=== PATIENT | female | born 1980 | race Caucasian/White ===

== ENCOUNTER 2024-04-24 10:38 | Emergency (ER) | payer OTHER ==
[2024-04-24] MEDS ORDERED: SODIUM CHLORIDE 0.9% 1,000 ML BAG ONE (11:30)
[2024-04-24] MEDS ORDERED: cefTRIAXone IN SWFI 1,000 MG/10 ML SYRINGE IVP ONE (15:23)
--- NOTE | 2024-05-27 11:23 | XR ---
Patient Yecenia Charles ID [id number] Order # EXAMINATION TYPE: XR chest 2V DATE OF EXAM: 04/24/2024 COMPARISON: No comparison available on downtime PACS. INDICATION: Acute mental status changes TECHNIQUE: Frontal and lateral views of the chest are obtained. FINDINGS: The heart size is normal. The pulmonary vasculature is normal. Some mild perihilar infiltrates are present. Correlate for acute bronchitis or atelectasis. Early pne umonia can be considered. Follow-up as clinically indicated. IMPRESSION: 1. Mild perihilar infiltrates. Correlate for bronchitis or early pneumonia.
== END 2024-04-24 15:55 | disposition home or self-care (01) ==
LOC: EC 10:38
DX: J18.9 Pneumonia, unspecified organism (principal)
CPT/HCPCS: 71046; 93005; 99284

== ENCOUNTER 2024-05-06 21:08 | Inpatient (IN) | payer OTHER ==
--- NOTE | 2024-05-06 21:33 | ED ---
Chest Pain HPI - General Stated Complaint: chest pain Time Seen by Provider: 05/06/24 21:24 Source: RN notes reviewed, old records reviewed Mode of arrival: EMS Limitations: no limitations - History of Present Illness Initial Comments: This is a 43-year-old female to the ER for evaluation today. Patient presents today for evaluation of pain. Patient has history of cardiomyopathy hypertrophic cardiomyopathy with arrhythmia. Patient presented with persistent chest pain here in the emergency department patient does not feel well MD Complaint: chest pain -: days(s) Onset: during rest, during exertion Pain Location: substernal, left chest Pain Radiation: LUE Severity: moderate Severity scale (1-10): 4 Quality: tightness, aching, heaviness Consistency: constant Improves With: nothing Worsens With: nothing Other Symptoms: palpitations Treatments Prior to Arrival: none - Related Data Home Medications Medication Instructions Recorded Confirmed Atomoxetine HCl [Strattera] 18 mg PO DAILY 05/07/24 05/07/24 Budesonide/Formoterol Fumarate 2 puff INHALATION RT-BID 05/07/24 05/07/24 [Symbicort 80-4.5 Mcg Inhaler] DULoxetine HCL [Cymbalta] 60 mg PO DAILY 05/07/24 05/07/24 Fluticasone Nasal [place] [Flonase 1 spray EA NOSTRIL DAILY 05/07/24 05/07/24 Nasal [place]] Lumateperone Tosylate [Caplyta] 10.5 mg PO DAILY 05/07/24 05/07/24 Nicotine 7Mg/24Hr Patch [Habitrol] 1 patch TRANSDERM DAILY 05/07/24 05/07/24 Verapamil HCl [Verapamil Sr] 120 mg PO DAILY 05/07/24 05/07/24 Previous Rx's Medication Instructions Recorded Albuterol Nebulized [Ventolin 2.5 mg INHALATION RT-QID PRN #20 05/08/24 Nebulized] each Atorvastatin [Lipitor] 80 mg PO HS #30 tab 05/08/24 Furosemide [Lasix] 20 mg PO DAILY #30 tab 05/08/24 Nicotine Polacrilex [Nicotine Gum] 4 mg BC QID #30 pieceofgum 05/08/24 Pantoprazole [Protonix] 40 mg PO AC-BRKFST #30 tab 05/08/24 Allergies Allergy/AdvReac Type Severity Reaction Status Date / Time Penicillins Allergy Swelling Verified 05/07/24 09:05 Review of Systems ROS Statement: Those systems with pertinent positive or pertinent negative responses have been documented in the HPI. ROS Other: All systems not noted in ROS Statement are negative. EKG Findings - EKG Comments: EKG Findings:: EKG is Sinus 83 RI 160 QRS 110 QTc 445 - EKG Results: EKG: interpreted by WANG Past Medical History - Past Family History Mother Additional Family Medical History / Comment(s): MS Father Family Medical History: Congestive Heart Failure (CHF), Hyperlipidemia, Hypertension General Exam General appearance: alert, in no apparent distress Head exam: Present: atraumatic, normocephalic, normal inspection Eye exam: Present: normal appearance, PERRL, EOMI. Absent: scleral icterus, conjunctival injection, periorbital swelling ENT exam: Present: normal exam, mucous membranes moist Neck exam: Present: normal inspection. Absent: tenderness, meningismus, lymphadenopathy Respiratory exam: Present: normal lung sounds bilaterally. Absent: respiratory distress, wheezes, rales, rhonchi, stridor Cardiovascular Exam: Present: regular rate, normal rhythm, normal heart sounds. Absent: systolic murmur, diastolic murmur, rubs, gallop, clicks GI/Abdominal exam: Present: soft, normal bowel sounds. Absent: distended, tenderness, guarding, rebound, rigid Extremities exam: Present: normal inspection, full ROM, normal capillary refill. Absent: tenderness, pedal edema, joint swelling, calf tenderness Back exam: Present: normal inspection Neurological exam: Present: alert, oriented X3, CN II-XII intact Psychiatric exam: Present: normal affect, normal mood Skin exam: Present: warm, dry, intact, normal color. Absent: rash Course Vital Signs 05/06/24 05/06/24 05/06/24 21:55 21:59 23:40 Temperature 97.9 F Pulse Rate 78 92 76 Respiratory 16 16 18 Rate Blood Pressure 97/68 115/72 121/63 O2 Sat by Pulse 94 L 94 L 95 Oximetry 05/07/24 05/07/24 05/07/24 00:13 04:37 06:04 Temperature Pulse Rate 92 95 84 Respiratory 18 18 18 Rate Blood Pressure 110/72 131/94 129/57 O2 Sat by Pulse 95 96 Oximetry 05/07/24 05/07/24 15:00 18:23 Temperature Pulse Rate 75 78 Respiratory 18 18 Rate Blood Pressure 106/73 117/75 O2 Sat by Pulse 98 98 Oximetry - Reevaluation(s) Reevaluation #1: 05/06/24 22:22 Medical records reviewed Reevaluation #2: 05/06/24 22:22 No chest pain here in the ER Reevaluation #3: 05/06/24 22:22 Informed of results questions answered Reevaluation #4: Was pt. sent in by a medical professional or institution ([facility], [employer], urgent care, hospital, or shelter...) When possible be specific @ -no Did you speak to anyone other than the patient for history (EMS, parent, family, police, friend...)? What history was obtained from this source @ -no Did you review nursing and triage notes (agree or disagree)? Why? @ -agree Are old charts reviewed (outside hosp., previous admission, EMS record, old EKG, old radiological studies, urgent care reports/EKG's, shelter records)? Report findings @ -yes Differential Diagnosis (chest pain, altered mental status, abdominal pain women, abdominal pain men, vaginal bleeding, weakness, fever, dyspnea, syncope, headache, dizziness, GI bleed, back pain, seizure, CVA, palpatations, mental health, musculoskeletal)? @ -prior EKG interpreted by me (3pts min.). @ -yes X-rays interpreted by me (1pt min.). @ -yes negative for acute disease CT interpreted by me (1pt min.). @ -no U/S interpreted by me (1pt. min.). @ -no What testing was considered but not performed or refused? (CT, X-rays, U/S, labs)? Why? @ -none What meds were considered but not given or refused? Why? @ -none Did you discuss the management of the patient with other professionals (professionals i.e. [facility]vas, [employer], lab, RT, psych nurse, social media job titles, boilermaker fitter, teacher, staff antisubmarine officer, case checker)? Give summary @ -no Was smoking cessation discussed for >3mins.? @ -no Was critical care preformed (if so, how long)? @ -yes31 Were there social determinants of health that impacted care today? How? (Homelessness, low income, unemployed, alcoholism, drug addiction, transportation, low edu. Level, literacy, decrease access to med. care, mcc, rehab)? @ -none Was there de-escalation of care discussed even if they declined (Discuss DNR or withdrawal of care, Hospice)? DNR status @ -no What co-morbidities impacted this encounter? (DM, HTN, Smoking, COPD, CAD, Cancer, CVA, ARF, Chemo, Hep., AIDS, mental health diagnosis, sleep apnea, morbid obesity)? @ -none Was patient admitted / discharged? Hospital course, mention meds given and route, prescriptions, significant lab abnormalities, going to OR and other pertinent info. @ - 43 female to the ER for evaluation patient with a chest pain mildly elevated troponin and significantly elevated troponin but does have severe CHF patient will be admitted for cardiac evaluation and observation Admitted with chest pain Undiagnosed new problem with uncertain prognosis? @ -no Drug Therapy requiring intensive monitoring for toxicity (Heparin, Nitro, Insulin, Cardizem)? @ -no Were any procedures done? @ -no Diagnosis/symptom? @ -Chest pain and elevated troponin Acute, or Chronic, or Acute on Chronic? @ -Acute Uncomplicated (without systemic symptoms) or Complicated (systemic symptoms)? @ -Complicated Side effects of treatment? @ -no Exacerbation, Progression, or Severe Exacerbation? @ -exacerbation Poses a threat to life or bodily function? How? (Chest pain, [place], [place], pneumonia, PE, COPD, DKA, ARF, appy, cholecystitis, CVA, Diverticulitis, Homicidal, Suicidal, threat to staff... and all critical care pts) @ -yes Reevaluation #5: Differential Chest Pain: Stable Angina, Unstable Angina, STEMI, NSTEMI Aortic Dissection, Pneumothorax, Musculoskeletal, Esophageal Spasm GERD, Cholecystitis, Pancreatitis, Zoster, this is not meant to be an all-inclusive list. - Consultations Consultation #1: With [facility] who agrees to admit this patient Consultation #2: Spoke with cardiology who did see patient's EKG Chest Pain MDM - MDM 43 female to the ER for evaluation patient with a chest pain mildly elevated troponin and significantly elevated troponin but does have severe CHF patient w ill be admitted for cardiac evaluation and observation Critical Care Time Critical Care Time: Yes Total Critical Care Time: 31 Disposition Clinical Impression: Acute non-ST elevation myocardial infarction (NSTEMI), CHF (congestive heart failure), HOCM (hypertrophic obstructive cardiomyopathy) Disposition: ADMITTED IP TO THIS HOSP Condition: Fair Is patient prescribed a controlled substance at d/c from ED?: No Time of Disposition: 23:35
[2024-05-06 21:47] LABS: Basophils % (A) 0 %; Eosinophils # (A) 0.3 k/uL (0-0.7); Eosinophils % (A) 3 %; HCT 35.5 % (34.0-46.0); HGB 12.2 gm/dL (11.4-16.0); Lymphocytes % (A) 20 %; MCH 30.4 pg (25.0-35.0); MCHC 34.4 g/dL (31.0-37.0); MCV 88.4 fL (80.0-100.0); Mean Platelet Volume 7.9; Monocytes # (A) 0.4 k/uL (0-1.0); Monocytes % (A) 4 %; Neutrophils % (A) 72 %; Platelet Count 244 k/uL (150-450); RBC 4.02 m/uL (3.80-5.40); RDW 14.3 % (11.5-15.5); WBC 9.8 k/uL (3.8-10.6)
[2024-05-06 21:56] LABS: INR 0.9 (<1.2); Partial Thromboplastin Time 24.5 sec (22.0-30.0)
[2024-05-06 22:00] LABS: ALT 17 U/L (4-34); AST 23 U/L (14-36); African American GFR (CKD) >90 (>60 ml/min/1.73 sqM); Albumin 3.6 g/dL (3.5-5.0); Alkaline Phosphatase 57 U/L (38-126); Anion Gap 4 mmol/L; Blood Urea Nitrogen 20 mg/dL (7-17); Calcium 9.1 mg/dL (8.4-10.2); Carbon Dioxide 20 mmol/L (22-30); Chloride 109 mmol/L (98-107); Glucose 95 mg/dL (74-99); Lipase 117 U/L (23-300); Magnesium 2.1 mg/dL (1.6-2.3); Non-African American GFR(CKD) >90 (>60 ml/min/1.73 sqM); Sodium 133 mmol/L (137-145); Total Bilirubin 0.4 mg/dL (0.2-1.3)
--- NOTE | 2024-05-06 22:02 | XR ---
EXAMINATION TYPE: XR chest 2V DATE OF EXAM: 05/06/2024 COMPARISON: None INDICATION: Chest pain TECHNIQUE: Frontal and lateral views of the chest are obtained. FINDINGS: The heart size is large. The pulmonary vasculature is dominant. Mild increased lung markings are at the lingula. The atelectasis or pneumonia. Atypical pneumonia cou ld be considered.. IMPRESSION: 1. Prominent heart and pulmonary vascular markings. Correlate for volume overload. 2. Atelectasis versus pneumonia within the lingula. Atypical pulmonary edema should be considered. Fo llow-up can be performed.
[2024-05-06 22:08] LABS: NT-Pro-B-Type Natriuretic Pept 2280 pg/mL
[2024-05-06] MEDS: FUROSEMIDE 10 MG/ML 4 ML VIAL IV STA (23:46)
[2024-05-07] MEDS ORDERED: NITROGLYCERIN OINT 1 INCH/GM PACKET TOPICAL SCH
[2024-05-07] MEDS: FUROSEMIDE 20 MG TAB PO SCH (10:17)
[2024-05-07] MEDS: NICOTINE 7MG/24HR PATCH TRANSDERM SCH (10:18)
[2024-05-07] MEDS: VERAPAMIL SR 120 MG TABLET.ER PO SCH (10:18)
[2024-05-07 10:47] LABS: African American GFR (CKD) >90 (>60 ml/min/1.73 sqM); Anion Gap 5 mmol/L; Blood Urea Nitrogen 16 mg/dL (7-17); Calcium 8.8 mg/dL (8.4-10.2); Carbon Dioxide 25 mmol/L (22-30); Chloride 106 mmol/L (98-107); Glucose 82 mg/dL (74-99); Non-African American GFR(CKD) >90 (>60 ml/min/1.73 sqM); Potassium 4.3 mmol/L (3.5-5.1); Sodium 136 mmol/L (137-145)
[2024-05-07] MEDS: SYMBICORT 80-4.5 MCG INHALER INHALATION SCH (11:23)
[2024-05-07] MEDS: ATOMOXETINE HCL 18 MG PO SCH (11:58)
[2024-05-07] MEDS: LUMATEPERONE TOSYLATE PO SCH (11:59)
--- NOTE | 2024-05-07 13:21 | P.CRDCN ---
History of Present Illness Consult date: 05/07/24 Consult reason: congestive heart failure History of present illness: This is a 43-year-old female with past medical history of hypertrophic cardi omyopathy, methamphetamine use. We have been asked to evaluate the patient for chest pain. Patient states that she was at rehab at [place] and developed heaviness in her chest that she has not had before. She normally follows with a seasoning mixer in the [facility] and has been told that she had hypertrophic cardiomyopathy. She is not currently on any other medications except verapamil. She states her last use of methamphetamines was 18 days ago. She denies any history of coronary artery disease. Blood pressure 129/57, heart rate 84, pulse ox 96% on room air. Patient is status post 1 dose of IV Lasix 40 mg. EKG: Sinus rhythm with LVH Chest x-ray: Prominent heart and pulmonary vascular markings correlate for volume overload. Atelectasis versus pneumonia within the lingula. Atypical pulmonary edema should be considered. Laboratory studies: CBC unremarkable. Sodium 136, potassium 4.3, BUN 16 creatinine 0.72. Troponin negative x 3. proBNP 2280. Home cardiac medications: Verapamil 120 mg daily Review Of Systems: At the time of my exam: CONSTITUTIONAL: Denies fever or chills. Reports fatigue. HEENT: Denies blurred vision, vision changes, or eye pain. Denies hemoptysis CARDIOVASCULAR: Reports chest heaviness. Denies orthopnea. Denies PND. Denies palpitations RESPIRATORY: Denies shortness of breath. GASTROINTESTINAL: Denies abdominal pain. Denies nausea or vomiting. HEMATOLOGIC: Denies bleeding disorders. GENITOURINARY: Denies any blood in urine. SKIN: Denies puritis. Denies rash. Physical examination: Gen: This is a 43-year-old female in no acute distress VS: reviewed HEENT: Head is atraumatic, normocephalic. Pupils equal, round. Sclerae is anicteric. NECK: Supple. No JVD. LUNGS: Minimal rhonchi. No intercostal retractions. HEART: Regular rate and rhythm. 4/6 systolic ejection murmur. ABDOMEN: Soft No tenderness. EXTREMITIES: No pedal edema. No calf tenderness. NEUROLOGICAL: Patient is awake, alert and oriented x3. Assessment: Atypical chest pain with negative troponins Acute diastolic heart failure Hypertrophic cardiomyopathy Methamphetamine use, currently in rehab Plan: Resume patient's home cardiac medications Obtain records from patient's seasoning mixer in [place] patient on Lasix oral 20 mg daily Obtain 2-D echocardiogram and Doppler study to assess cardiac structure and function Further recommendations to follow based upon clinical course Thank you kindly for this consultation. Nurse practitioner note has been reviewed, I agree with documented findings and plan of care. Patient was seen and examined. Medications and Allergies Home Medications Medication Instructions Recorded Confirmed Type Atomoxetine HCl [Strattera] 18 mg PO DAILY 05/07/24 05/07/24 History Budesonide/Formoterol Fumarate 2 puff INHALATION RT-BID 05/07/24 05/07/24 History [Symbicort 80-4.5 Mcg Inhaler] DULoxetine HCL [Cymbalta] 60 mg PO DAILY 05/07/24 05/07/24 History Fluticasone Nasal [place] [Flonase 1 spray EA NOSTRIL DAILY 05/07/24 05/07/24 History Nasal [place]] Lumateperone Tosylate [Caplyta] 10.5 mg PO DAILY 05/07/24 05/07/24 History Nicotine 7Mg/24Hr Patch [Habitrol] 1 patch TRANSDERM DAILY 05/07/24 05/07/24 History Verapamil HCl [Verapamil Sr] 120 mg PO DAILY 05/07/24 05/07/24 History Allergies Allergy/AdvReac Type Severity Reaction Status Date / Time Penicillins Allergy Swelling Verified 05/07/24 09:05 Physical Exam Vitals: Vital Signs Temp Pulse Resp BP Pulse Ox 05/07/24 06:04 84 18 129/57 96 05/07/24 04:37 95 18 131/94 05/07/24 00:13 92 18 110/72 95 05/06/24 23:40 76 18 121/63 95 05/06/24 21:59 97.9 F 92 16 115/72 94 L 05/06/24 21:55 78 16 97/68 94 L Intake and Output 05/06/24 05/07/24 05/07/24 22:59 06:59 14:59 Other: Weight 83.461 kg 83.461 kg Results 05/06/24 21:40 05/07/24 06:44 Cardiac Enzymes 05/06/24 05/06/24 05/07/24 Range/Units 21:40 21:40 02:47 AST 23 (14-36) U/L Troponin I 0.016 0.016 (0.000-0.034) ng/mL 05/07/24 Range/Units 06:44 AST (14-36) U/L Troponin I <0.012 (0.000-0.034) ng/mL Coagulation 05/06/24 Range/Units 21:40 PT 10.0 (10.0-12.5) sec APTT 24.5 (22.0-30.0) sec CBC 05/06/24 Range/Units 21:40 WBC 9.8 (3.8-10.6) k/uL RBC 4.02 (3.80-5.40) m/uL Hgb 12.2 (11.4-16.0) gm/dL Hct 35.5 (34.0-46.0) % Plt Count 244 (150-450) k/uL Comprehensive Metabolic Panel 05/06/24 Range/Units 21:40 Sodium 133 L (137-145) mmol/L Potassium 4.0 (3.5-5.1) mmol/L Chloride 109 H (98-107) mmol/L Carbon Dioxide 20 L (22-30) mmol/L BUN 20 H (7-17) mg/dL Creatinine 0.77 (0.52-1.04) mg/dL Glucose 95 (74-99) mg/dL Calcium 9.1 (8.4-10.2) mg/dL AST 23 (14-36) U/L ALT 17 (4-34) U/L Alkaline Phosphatase 57 (38-126) U/L Total Protein 6.0 L (6.3-8.2) g/dL Albumin 3.6 (3.5-5.0) g/dL Current Medications Generic Name Dose Route Start Last Admin Trade Name Freq PRN Reason Stop Dose Admin Atorvastatin Calcium 80 mg 05/07/24 21:00 Atorvastatin 80 Mg Tab PO HS FELIPA Intake and Output 05/06/24 05/07/24 05/07/24 22:59 06:59 14:59 Other: Weight 83.461 kg 83.461 kg 05/06/24 21:40 05/06/24 21:40
[2024-05-07] MEDS ORDERED: ALBUTEROL NEBULIZED 2.5 MG/3 ML INHALATION PRN (15:36)
--- NOTE | 2024-05-07 15:37 | P.HPIM ---
History of Present Illness H&P Date: 05/07/24 This is a pleasant 43-year-old female with medical history of hypertrophic cardiomyopathy with arrhythmia follows with a director of pediatric rehabilitation out of [facility] as well as methamphetamine use and has been at [facility]. Patient was recently admitted to the [facility] from [place] for shortness of breath was treated with azithromycin and sent back to [place]. Patient states that she has been more active than usual today she started to develop substernal left-sided chest pain with associated shortness of breath denies any dizziness or lightheadedness. She states that she has not been coughing and is not having any fever at this time. She did require 2 L of oxygen on admission. Her chest x-ray reveals volume overload with atelectasis versus pneumonia which is likely residual from her prior diagnosis. BNP was 2280 sodium of 133. Patient was admitted for acute CHF and started on oral Lasix was given a dose of IV Lasix on admission. And a repeat echocardiogram has been ordered and currently pending at this time. Medical records are requested from patient's main director of pediatric rehabilitation up in [place]. REVIEW OF SYSTEMS: CONSTITUTIONAL: No fever, no malaise, no fatigue. HEENT: No recent visual problems or hearing problems. Denied any sore throat. CARDIOVASCULAR: No chest pain, orthopnea, PND, no palpitations, no syncope. PULMONARY: No shortness of breath, no cough, no hemoptysis. GASTROINTESTINAL: No diarrhea, no nausea, no vomiting, no abdominal pain. NEUROLOGICAL: No headaches, no weakness, no numbness. HEMATOLOGICAL: Denies any bleeding or petechiae. GENITOURINARY: Denies any burning micturition, frequency, or urgency. MUSCULOSKELETAL/RHEUMATOLOGICAL: Denies any joint pain, swelling, or any muscle pain. ENDOCRINE: Denies any polyuria or polydipsia. The rest of the 14-point review of systems is negative. PHYSICAL EXAMINATION: GENERAL: The patient is alert and oriented x3, not in any acute distress. Well developed, well nourished. HEENT: Pupils are round and equally reacting to light. EOMI. No scleral icterus. No conjunctival pallor. Normocephalic, atraumatic. No pharyngeal erythema. No thyromegaly. CARDIOVASCULAR: S1 and S2 present. No murmurs, rubs, or gallops. PULMONARY: Chest is clear to auscultation, no wheezing or crackles. ABDOMEN: Soft, nontender, nondistended, normoactive bowel sounds. No palpable or ganomegaly. MUSCULOSKELETAL: No joint swelling or deformity. EXTREMITIES: No cyanosis, clubbing, or pedal edema. NEUROLOGICAL: Gross neurological examination did not reveal any focal deficits. SKIN: No rashes. Assessment -Chest pain, atypical rule out acute coronary syndrome -Acute diastolic heart failure -Known hypertropic cardiomyopathy follows with a director of pediatric rehabilitation out of [facility] -Methamphetamine use currently at [facility] -Hyponatremia hypervolemic improved with IV lasix -COPD with no acute exacerbation. GI prophylaxis Plan Continue current cardiac medications Cardiology consultation Echocardiogram pending Records from [facility] Patient has been started on oral lasix. Continue symbicort add nebulized albuterol. The impression and plan of care has been dictated by Maria Elena Nails, Nurse Practitioner as directed. Dr. Patti MD I have performed a history and physical examination and medical decision making of this patient, discussed the same with the dictator, and agree with the dictators assessment and plan as written, documented as a scribe. Based on total visit time, I have performed more than 50% of this visit. Medications and Allergies Home Medications Medication Instructions Recorded Confirmed Type Atomoxetine HCl [Strattera] 18 mg PO DAILY 05/07/24 05/07/24 History Budesonide/Formoterol Fumarate 2 puff INHALATION RT-BID 05/07/24 05/07/24 History [Symbicort 80-4.5 Mcg Inhaler] DULoxetine HCL [Cymbalta] 60 mg PO DAILY 05/07/24 05/07/24 History Fluticasone Nasal [place] [Flonase 1 spray EA NOSTRIL DAILY 05/07/24 05/07/24 History Nasal [place]] Lumateperone Tosylate [Caplyta] 10.5 mg PO DAILY 05/07/24 05/07/24 History Nicotine 7Mg/24Hr Patch [Habitrol] 1 patch TRANSDERM DAILY 05/07/24 05/07/24 History Verapamil HCl [Verapamil Sr] 120 mg PO DAILY 05/07/24 05/07/24 History Allergies Allergy/AdvReac Type Severity Reaction Status Date / Time Penicillins Allergy Swelling Verified 05/07/24 09:05 Physical Exam Vitals: Vital Signs Temp Pulse Resp BP Pulse Ox 05/07/24 06:04 84 18 129/57 96 05/07/24 04:37 95 18 131/94 05/07/24 00:13 92 18 110/72 95 05/06/24 23:40 76 18 121/63 95 05/06/24 21:59 97.9 F 92 16 115/72 94 L 05/06/24 21:55 78 16 97/68 94 L Intake and Output 05/06/24 05/07/24 05/07/24 22:59 06:59 14:59 Other: Weight 83.461 kg 83.461 kg Results CBC & Chem 7: 05/06/24 21:40 05/07/24 06:44 Labs: Abnormal Lab Results - Last 24 Hours (Table) 05/06/24 Range/Units 21:40 Sodium 133 L (137-145) mmol/L Chloride 109 H (98-107) mmol/L Carbon Dioxide 20 L (22-30) mmol/L BUN 20 H (7-17) mg/dL Total Protein 6.0 L (6.3-8.2) g/dL Assessment and Plan Time with Patient: Less than 30
[2024-05-07] MEDS: ALBUTEROL NEBULIZED 2.5 MG/3 ML INHALATION SCH (16:11)
[2024-05-07] MEDS: CYCLOBENZAPRINE 10 MG TAB PO PRN (18:23)
[2024-05-08] MEDS ORDERED: ATORVASTATIN 80 MG TAB ONE (00:38)
[2024-05-08] MEDS: PANTOPRAZOLE 40 MG TABLET PO SCH (06:32)
[2024-05-08] MEDS: ATORVASTATIN 80 MG TAB PO SCH (07:30)
[2024-05-08] MEDS: DULoxetine HCL 60 MG CAPSULE.DR PO SCH (07:31)
[2024-05-08] MEDS: FLUTICASONE NASAL 50MCG/SPRAY 16GM BTL EA NOSTRIL SCH (11:39)
--- NOTE | 2024-05-08 13:16 | CA ---
Transthoracic Echo Report Name: Yecenia Charles Age: 43 Gender: F : 1980 Exam Date: 05/07/2024 14:00 Exam Location: [place] [facility] Ht (in): 63 Wt (lb): 184 Ordering Physician: Piero Phillip DO Attending/Referring Phys: [id number], Kenji Tank Car Loader Thania Kelley, AKHIL Procedure CPT: Indications: Heart failure Cardiac Hx: HOCM Technical Quality: Fair Contrast 1: Definity Total Dose (mL): 2 Contrast 2: Total Dose (mL): MEASUREMENTS (Male / Female) Normal Values 2D ECHO LV Diastolic Diameter PLAX 3.5 cm 4.2 - 5.9 / 3.9 - 5.3 cm LV Systolic Diameter PLAX 2.2 cm IVS Diastolic Thickness 2.3 cm 0.6 - 1.0 / 0.6 - 0.9 cm LVPW Diastolic Thickness 1.5 cm 0.6 - 1.0 / 0.6 - 0.9 cm LV Relative Wall Thickness 1.1 RV Internal Dim ED PLAX 2.2 cm LA Systolic Diameter LX 4.9 cm 3.0 - 4.0 / 2.7 - 3.8 cm LA Volume 125.2 cm??? 18 - 58 / 22 - 52 cm??? LA Volume Index 63.9 cm???/m??? 16 - 28 cm???/m??? M-MODE Aortic Root Diameter MM 2.6 cm LA Systolic Diameter MM 4.6 cm LA Ao Ratio MM 1.8 AV Cusp Separation MM 1.7 cm DOPPLER MV Area PHT 2.6 cm??? Mitral E Point Velocity 113.4 cm/s Mitral A Point Velocity 70.9 cm/s Mitral E to A Ratio 1.6 MV Deceleration Time 294.9 ms TR Peak Velocity 310.6 cm/s TR Peak Gradient 38.6 mmHg FINDINGS Left Ventricle Left ventricular ejection fraction is estimated at 70-75%. Severely increased septal wall thickness. Moderately increased posterior wall thickness. Small left ventricular cavity. Severe HOCM LVOTO 55 mmHg with valsalva maneuver. Right Ventricle Right ventricle not well visualized. Mild pulmonary hypertension. Right Atrium Mild right atrial dilatation. Left Atrium Severely increased left atrial diameter. Severely increased left atrial volume. Mildly increased left atrial area. Mitral Valve Structurally normal mitral valve. Severe mitral regurgitation. No mitral stenosis. Aortic Valve Trileaflet aortic valve. No aortic stenosis. No aortic regurgitation. Tricuspid Valve Structurally normal tricuspid valve. Mild tricuspid regurgitation. No tricuspid stenosis. Pulmonic Valve Structurally normal pulmonic valve. Mild pulmonic regurgitation. No pulmonic stenosis. Pericardium No pericardial or pleural effusion. Aorta Normal size aortic root and proximal ascending aorta. CONCLUSIONS Left ventricular ejection fraction 70% Severe increased septal thickness measuring 2.3 cm consistent with hypertrophic cardiomyopathy with LVOT gradient 55 mmHg with Valsalva RVSP 38 Moderate to severely dilated left atrium Severe mitral regurgitation with systolic anterior motion of the mitral leaflet Mild tricuspid regurgitation Previewed by: Dr. Tushar Magallanes DO (Electronically Signed) Final Date: 08 May 2024 13:15
--- NOTE | 2024-05-08 14:02 | P.PN ---
Subjective Progress Note Date: 05/08/24 Consult reason: congestive heart failure History of present illness: This is a 43-year-old female with past medical history of hypertrophic cardiomyopathy, methamphetamine use. We have been asked to evaluate the patient for chest pain. Patient states that she was at rehab at [place] and developed heaviness in her chest that she has not had before. She normally follows with a restaurant team member in the [facility] and has been told that she had hypertrophic cardiomyopathy. She is not currently on any other medications except verapamil. She states her last use of methamphetamines was 18 days ago. She denies any history of coronary artery disease. Blood pressure 129/57, heart rate 84, pulse ox 96% on room air. Patient is status post 1 dose of IV Lasix 40 mg. EKG: Sinus rhythm with LVH Chest x-ray: Prominent heart and pulmonary vascular markings correlate for volume overload. Atelectasis versus pneumonia within the lingula. Atypical pul monary edema should be considered. Laboratory studies: CBC unremarkable. Sodium 136, potassium 4.3, BUN 16 creatinine 0.72. Troponin negative x 3. proBNP 2280. Home cardiac medications: Verapamil 120 mg daily 05/08 Echocardiogram reveals EF of 70%. Severe increased septal thickness measuring 2.3 cm consistent with hypertrophic cardiomyopathy with LVOT gradient 55 mmHg with Valsalva. RVSP 38. Moderate to severely dilated left atrium. Severe mitral regurgitation and mild tricuspid regurgitation. Records from patient's restaurant team member have been reviewed and are similar except for it appears worsening of the mitral regurgitation. Vital signs have been stable. BMP unremarkable. Physical examination: Gen: This is a 43-year-old female in no acute distress VS: reviewed HEENT: Head is atraumatic, normocephalic. Pupils equal, round. Sclerae is anicteric. NECK: Supple. No JVD. LUNGS: Minimal rhonchi. No intercostal retractions. HEART: Regular rate and rhythm. 4/6 systolic ejection murmur. ABDOMEN: Soft No tenderness. EXTREMITIES: No pedal edema. No calf tenderness. NEUROLOGICAL: Patient is awake, alert and oriented x3. Assessment: Atypical chest pain with negative troponins Acute diastolic heart failure Hypertrophic cardiomyopathy Methamphetamine use, currently in rehab Plan: Continue patient's home cardiac medications Continue patient on Lasix oral 20 mg daily Patient is cleared for discharge from cardiology with recommendations to follow- up with her own restaurant team member regarding hypertrophic cardiomyopathy as well as severe mitral regurgitation. If patient is at rehab for an extended period, she may follow-up with [facility]ology Associates during that time if she chooses to do so. Nurse practitioner note has been reviewed, I agree with documented findings and plan of care. Patient was seen and examined. Objective - Vital Signs Vital signs: Vital Signs Temp 98.2 F 05/08/24 08:00 Pulse 77 05/08/24 08:00 Resp 14 05/08/24 08:00 BP 105/69 05/08/24 08:00 Pulse Ox 94 L 05/08/24 08:00 FiO2 Intake & Output 05/07/24 05/08/24 05/08/24 18:59 06:59 18:59 Weight 80.8 kg - Labs CBC & Chem 7: 05/06/24 21:40 05/07/24 06:44 Labs: Abnormal Lab Results - Last 24 Hours (Table) 05/07/24 Range/Units 06:44 Sodium 136 L (137-145) mmol/L
[2024-05-08] MEDS ORDERED: ACETAMINOPHEN TAB 325 MG TAB PO PRN (14:36)
[2024-05-08] MEDS: IBUPROFEN 400 MG TAB PO PRN (14:56)
[2024-05-08 15:52] VITALS: BMI 31.5
[2024-05-08 21:03] LABS: Appearance,Urine Cloudy (Clear); Bacteria,Urine Occasional /hpf; Bilirubin,Urine Negative (Negative); Blood,Urine Trace (Negative); Color,Urine Colorless; Glucose,Urine (UA) Negative (Negative); Ketones,Urine Negative (Negative); Leukocyte Esterase,Urine Trace (Negative); Mucus,Urine Rare /hpf; Nitrite,Urine Negative (Negative); Protein,Urine Negative (Negative); RBC,Urine 1 /hpf (0-5); Specific Gravity,Urine 1.004 (1.001-1.035); Squamous Epithelial Cell,Urine 13 /hpf (0-4); Urobilinogen,Urine <2.0 mg/dL (<2.0); WBC,Urine 2 /hpf (0-5)
--- NOTE | 2024-05-09 11:04 | US ---
EXAMINATION TYPE: US kidneys/renal and bladder DATE OF EXAM: 05/09/2024 COMPARISON: NONE CLINICAL INDICATION: Female, 43 years old with history of Flank pain, hematuria; flank pain, more on the right. Pt states she has bacteruria EXAM MEASUREMENTS: Right Kidney: 10.5 x 5.0 x 4.0 cm Left Kidney: 10.6 x 5.4 x 5.8 cm Right Kidney: No hydronephrosis or masses seen Left Kidney: No hydronephrosis or masses seen Bladder: wnl Bilateral Jets seen: Yes There is no evidence for hydronephrosis at this point in time. No nephrolithiasis is seen. No tonya s are identified. The urinary bladder is anechoic. Bilateral ureteral jets are seen. IMPRESSION: No evidence for obstructive uropathy. No renal calculi.
[2024-05-09 11:42] LABS: HCT 43.9 % (34.0-46.0); MCH 29.8 pg (25.0-35.0); MCHC 34.1 g/dL (31.0-37.0); MCV 87.3 fL (80.0-100.0); Mean Platelet Volume 7.4; Platelet Count 320 k/uL (150-450); RBC 5.03 m/uL (3.80-5.40); RDW 14.1 % (11.5-15.5); WBC 7.5 k/uL (3.8-10.6)
[2024-05-09 13:03] VITALS: RESP 14
--- NOTE | 2024-05-09 14:04 | P.PN ---
Subjective Progress Note Date: 05/08/24 This is a pleasant 43-year-old female with medical history of hypertrophic cardiomyopathy with arrhythmia follows with a marketing copywriter out of [facility] as well as methamphetamine use and has been at [facility]. Patient was recently admitted to the [facility] from [place] for shortness of breath was treated with azithromycin and sent back to [place]. Patient states that she has been more active than usual today she started to develop substernal left-sided chest pain with associated shortness of breath denies any dizziness or lightheadedness. She st ates that she has not been coughing and is not having any fever at this time. She did require 2 L of oxygen on admission. Her chest x-ray reveals volume overload with atelectasis versus pneumonia which is likely residual from her prior diagnosis. BNP was 2280 sodium of 133. Patient was admitted for acute CHF and started on oral Lasix was given a dose of IV Lasix on admission. And a repeat echocardiogram has been ordered and currently pending at this time. Medical records are requested from patient's main marketing copywriter up in [place]. 05/08/2024 Patients chest pain has gone. Her main complaint now is shortness of breath. She is continued on oral lasix. Her echocardiogram reveals EF of 70% hypertrophic cardiomyopathy with LVOT gradient, severe MR with systolic anterior motion of the mitral leaflet, mild TR. Echo was reviewed by cardiology and patient has been cleared for DC home. REVIEW OF SYSTEMS: CONSTITUTIONAL: No fever, no malaise, no fatigue. HEENT: No recent visual problems or hearing problems. Denied any sore throat. CARDIOVASCULAR: No chest pain, orthopnea, PND, no palpitations, no syncope. PULMONARY: No shortness of breath, no cough, no hemoptysis. GASTROINTESTINAL: No diarrhea, no nausea, no vomiting, no abdominal pain. NEUROLOGICAL: No headaches, no weakness, no numbness. PHYSICAL EXAMINATION: GENERAL: The patient is alert and oriented x3, not in any acute distress. Well developed, well nourished. HEENT: Pupils are round and equally reacting to light. EOMI. No scleral icterus. No conjunctival pallor. Normocephalic, atraumatic. No pharyngeal erythema. No thyromegaly. CARDIOVASCULAR: S1 and S2 present. No murmurs, rubs, or gallops. PULMONARY: Chest is clear to auscultation, no wheezing or crackles. ABDOMEN: Soft, nontender, nondistended, normoactive bowel sounds. No palpable organomegaly. MUSCULOSKELETAL: No joint swelling or deformity. EXTREMITIES: No cyanosis, clubbing, or pedal edema. NEUROLOGICAL: Gross neurological examination did not reveal any focal deficits. SKIN: No rashes. Assessment -Chest pain, atypical rule out acute coronary syndrome -Acute diastolic heart failure -Known hypertropic cardiomyopathy follows with a marketing copywriter out of [facility] -Methamphetamine use currently at [facility] [address] -Hyponatremia hypervolemic improved with IV lasix -COPD with no acute exacerbation. GI prophylaxis Plan Continue current cardiac medications Cardiology consultation Echocardiogram Reviewed and cleared by cardiology Records from [facility] echo unchanged. Patient has been started on oral lasix. Continue symbicort add nebulized albuterol. The impression and plan of care has been dictated by Maria Elena Nails Nurse Practitioner as directed. Dr. Patti MD I have performed a history and physical examination and medical decision making of this patient, discussed the same with the dictator, and agree with the dictators assessment and plan as written, documented as a scribe. Based on total visit time, I have performed more than 50% of this visit. Objective - Vital Signs Vital signs: Vital Signs Temp 97.9 F 05/09/24 08:00 Pulse 62 05/09/24 08:00 Resp 16 05/09/24 08:00 BP 112/57 05/09/24 08:00 Pulse Ox 96 05/09/24 08:00 FiO2 Intake & Output 05/08/24 05/09/24 05/09/24 18:59 06:59 18:59 Intake Total 360 240 240 Balance 360 240 240 Weight 80.8 kg 81.2 kg Intake: Oral 360 240 240 Other: # Voids 2 1 - Labs CBC & Chem 7: 05/09/24 10:49 05/07/24 06:44 Labs: Abnormal Lab Results - Last 24 Hours (Table) 05/08/24 Range/Units 20:45 Urine Appearance Cloudy H (Clear) Urine Blood Trace H (Negative) Ur Leukocyte Esterase Trace H (Negative) Ur Squamous Epith Cells 13 H (0-4) /hpf Urine Bacteria Occasional H (None) /hpf Urine Mucus Rare H (None) /hpf Assessment and Plan Time with Patient: Less than 30
[2024-05-09] MEDS: IOPAMIDOL CONTRAST (ORAL USE) VIAL PO PRN (14:26)
--- NOTE | 2024-05-09 15:09 | P.PN ---
Subjective Progress Note Date: 05/09/24 Consult reason: congestive heart failure History of present illness: This is a 43-year-old female with past medical history of hypertrophic cardiomyopathy, methamphetamine use. We have been asked to evaluate the patient for chest pain. Patient states that she was at rehab at [place] and developed heaviness in her chest that she has not had before. She normally follows with a sleeping room cleaner in the [facility] and has been told that she had hypertrophic cardiomyopathy. She is not currently on any other medications except verapamil. She states her last use of methamphetamines was 18 days ago. She denies any history of coronary artery disease. Blood pressure 129/57, heart rate 84, pulse ox 96% on room air. Patient is status post 1 dose of IV Lasix 40 mg. EKG: Sinus rhythm with LVH Chest x-ray: Prominent heart and pulmonary vascular markings correlate for volume overload. Atelectasis versus pneumonia within the lingula. Atypical pul monary edema should be considered. Laboratory studies: CBC unremarkable. Sodium 136, potassium 4.3, BUN 16 creatinine 0.72. Troponin negative x 3. proBNP 2280. Home cardiac medications: Verapamil 120 mg daily 05/08 Echocardiogram reveals EF of 70%. Severe increased septal thickness measuring 2.3 cm consistent with hypertrophic cardiomyopathy with LVOT gradient 55 mmHg with Valsalva. RVSP 38. Moderate to severely dilated left atrium. Severe mitral regurgitation and mild tricuspid regurgitation. Records from patient's sleeping room cleaner have been reviewed and are similar except for it appears worsening of the mitral regurgitation. Vital signs have been stable. BMP unremarkable. 05/09 Patient is seen today and follow-up. She was cleared for discharge yesterday. Patient apparently developed dysuria and flank pain for which discharge was held. Blood pressure 116/70, heart rate 72, pulse ox 97% on room air. Physical examination: Gen: This is a 43-year-old female in no acute distress VS: reviewed HEENT: Head is atraumatic, normocephalic. Pupils equal, round. Sclerae is anicteric. NECK: Supple. No JVD. LUNGS: Minimal rhonchi. No intercostal retractions. HEART: Regular rate and rhythm. 4/6 systolic ejection murmur. ABDOMEN: Soft No tenderness. EXTREMITIES: No pedal edema. No calf tenderness. NEUROLOGICAL: Patient is awake, alert and oriented x3. Assessment: Atypical chest pain with negative troponins Acute diastolic heart failure Hypertrophic cardiomyopathy Methamphetamine use, currently in rehab Plan: Continue patient's home cardiac medications Continue patient on Lasix oral 20 mg daily Patient is cleared for discharge from cardiology with recommendations to follow- up with her own sleeping room cleaner regarding hypertrophic cardiomyopathy as well as severe mitral regurgitation. Nurse practitioner note has been reviewed, I agree with documented findings and plan of care. Patient was seen and examined. Objective - Vital Signs Vital signs: Vital Signs Temp 98 F 05/08/24 20:00 Pulse 72 05/09/24 04:00 Resp 16 05/09/24 04:00 BP 116/70 05/09/24 04:00 Pulse Ox 97 05/09/24 08:00 FiO2 Intake & Output 05/08/24 05/09/24 05/09/24 18:59 06:59 18:59 Intake Total 360 240 240 Balance 360 240 240 Weight 80.8 kg 81.2 kg Intake: Oral 360 240 240 Other: # Voids 2 1 - Labs CBC & Chem 7: 05/09/24 10:49 05/07/24 06:44 Labs: Abnormal Lab Results - Last 24 Hours (Table) 05/08/24 Range/Units 20:45 Urine Appearance Cloudy H (Clear) Urine Blood Trace H (Negative) Ur Leukocyte Esterase Trace H (Negative) Ur Squamous Epith Cells 13 H (0-4) /hpf Urine Bacteria Occasional H (None) /hpf Urine Mucus Rare H (None) /hpf
--- NOTE | 2024-05-09 15:24 | CT ---
EXAMINATION TYPE: CT abdomen w con DATE OF EXAM: 05/09/2024 COMPARISON: None HISTORY: flank pain CT DLP: 852.4 mGycm Automated exposure control for dose reduction was used. TECHNIQUE: Helical acquisition of images was performed from the lung bases through the top of iliac crest to include entire abdomen. CONTRAST: Performed without Oral Contrast and with IV Contrast, patient injected with 100 mL of Isovue 300. Findings: There is a broad band of interstitial scarring in the left lung base. The gallbladder is normal without distention, wall thickening, pericholecystic fluid or gallstones. T here is no biliary ductal dilatation. There is no focal mass or organomegaly involving the liver, pancreas, spleen or adrenal glands. There is no solid renal mass or hydronephrosis and there is homogeneous contrast enhancement of the r enal parenchyma. The caliber the abdominal aorta is normal is no retroperitoneal adenopathy or hemorr lisa. The bowel loops are normal in caliber and there is no evidence of dilatation or obstruction. No infla mmatory changes are identified in the bowel wall or mesentery. There is no free intraperitoneal air or fluid. The osseous structures and soft tissues are intact. IMPRESSION: Mild interstitial scarring in the left lung base with no other significant abnormality seen.
[2024-05-09 16:09] VITALS: BP 106/68; PULSE 70; TEMP 98.1
--- NOTE | 2024-05-09 19:44 | P.DS ---
Providers Date of admission: 05/06/24 23:34 Attending physician: Marianne Allison Consults: 05/06/24 23:33 Consult Physician Routine Consulting Provider: Malcom Bean Consult Reason/Comments: chf Do you want consulting provider notified?: Yes Primary care physician: Stated None Hospital Course: Final Diagnosis -Chest pain, atypical rule out acute coronary syndrome -Acute diastolic heart failure -Valvular heart disease and worsening of miltral regurgitation and mild tricuspid regurgitation. -Known hypertropic cardiomyopathy follows with a city letter carrier out of [facility] -Methamphetamine use currently at [facility] -Hyponatremia hypervolemic improved with IV lasix -COPD with no acute exacerbation. Discharge Disposition Stable for discharge back to [place]. She has been sent on oral lasix, atorvastatin. Patient has requested nicorette gum which has been ordered. Patient to continue all other same home medications. Hospital Course This is a pleasant 43-year-old female with medical history of hypertrophic cardiomyopathy with arrhythmia follows with a city letter carrier out of [facility] as well as methamphetamine use and has been at [facility]. Patient was recently admitted to the [facility] from [place] for shortness of breath was treated with azithromycin and sent back to [place]. Patient states that she has been more active than usual today she started to develop substernal left-sided chest pain with associated shortness of breath denies any dizziness or lightheadedness. She states that she has not been coughing and is not having any fever at this time. She did require 2 L of oxygen on admission. Her chest x-ray reveals volume overload with atelectasis versus pneumonia which is likely residual from her prior diagnosis. BNP was 2280 sodium of 133. Patient was admitted for acute CHF and started on oral Lasix was given a dose of IV Lasix on admission. Echocardiogram reveals EF of 70%. Severe increased septal thickness measuring 2.3 cm consistent with hypertrophic cardiomyopathy with LVOT gradient 55 mmHg with Valsalva. RVSP 38. Moderate to severely dilated left atrium. Severe mitral regurgitation and mild tricuspid regurgitation. Records from patient's city letter carrier have been reviewed and are similar except for it appears worsening of the mitral regurgitation. Vital signs have been stable. BMP unremarkable. Patient has now report some right upper quadrant pain although not tender on exam and also right flank pain although again not tender on exam. Abdominal ultrasound shows no kidney stones, no hydronephrosis. Abdominal CT reveals no acute findings. Gallbladder is normal. Patient also had a normal D Dimer. She will be discharged back to [place] and advised to see her primary city letter carrier on discharge. Please see medication reconciliation for a list of current medications. Thank you for allowing us to participate in the care of this patient. The impression and plan of care has been dictated by Maria Elena Nails, Nurse Practitioner as directed. Dr. Patti MD I have performed a history and physical examination and medical decision making of this patient, discussed the same with the dictator, and agree with the dictators assessment and plan as written, documented as a scribe. Based on total visit time, I have performed more than 50% of this visit. Patient Condition at Discharge: Fair Plan - Discharge Summary Discharge Rx Participant: Yes New Discharge Prescriptions: New Furosemide [Lasix] 20 mg PO DAILY #30 tab Atorvastatin [Lipitor] 80 mg PO HS #30 tab Nicotine Polacrilex [Nicotine Gum] 4 mg BC QID #30 pieceofgum Pantoprazole [Protonix] 40 mg PO AC-BRKFST #30 tab Albuterol Nebulized [Ventolin Nebulized] 2.5 mg INHALATION RT-QID PRN #20 each PRN Reason: Shortness Of Breath Or Wheezing Continue Fluticasone Nasal Delta [Flonase Nasal Delta] 1 spray EA NOSTRIL DAILY Budesonide/Formoterol Fumarate [Symbicort 80-4.5 Mcg Inhaler] 2 puff INHALATION RT-BID Verapamil HCl [Verapamil Sr] 120 mg PO DAILY Nicotine 7Mg/24Hr Patch [Habitrol] 1 patch TRANSDERM DAILY Lumateperone Tosylate [Caplyta] 10.5 mg PO DAILY Atomoxetine HCl [Strattera] 18 mg PO DAILY DULoxetine HCL [Cymbalta] 60 mg PO DAILY Discharge Medication List Atomoxetine HCl [Strattera] 18 mg PO DAILY 05/07/24 [History] Budesonide/Formoterol Fumarate [Symbicort 80-4.5 Mcg Inhaler] 2 puff INHALATION RT-BID 05/07/24 [History] DULoxetine HCL [Cymbalta] 60 mg PO DAILY 05/07/24 [History] Fluticasone Nasal Delta [Flonase Nasal Delta] 1 spray EA NOSTRIL DAILY 05/07/24 [History] Lumateperone Tosylate [Caplyta] 10.5 mg PO DAILY 05/07/24 [History] Nicotine 7Mg/24Hr Patch [Habitrol] 1 patch TRANSDERM DAILY 05/07/24 [History] Verapamil HCl [Verapamil Sr] 120 mg PO DAILY 05/07/24 [History] Albuterol Nebulized [Ventolin Nebulized] 2.5 mg INHALATION RT-QID PRN #20 each 05/08/24 [Rx] Atorvastatin [Lipitor] 80 mg PO HS #30 tab 05/08/24 [Rx] Furosemide [Lasix] 20 mg PO DAILY #30 tab 05/08/24 [Rx] Nicotine Polacrilex [Nicotine Gum] 4 mg BC QID #30 pieceofgum 05/08/24 [Rx] Pantoprazole [Protonix] 40 mg PO AC-BRKFST #30 tab 05/08/24 [Rx] Follow up Appointment(s)/Referral(s): None,Stated [Primary Care Provider] - 1-2 days Patient Instructions/Handouts: Heart Failure (DC), Hypertrophic Cardiomyopathy (ED) Activity/Diet/Wound Care/Special Instructions: Return to [place] please call to arrange transportation Follow up with your main city letter carrier and PCP on discharge. Discharge Disposition: HOME SELF-CARE
== END 2024-05-09 17:55 | disposition home or self-care (01) | DRG 194 ==
LOC: EC 21:08 → 3SCARD 23:34
PROVIDERS: ADMIT Hospitalist; ATTEND Hospitalist
DX: I50.31 Acute diastolic (congestive) heart failure (principal); E87.1 Hypo-osmolality and hyponatremia; J44.9 Chronic obstructive pulmonary disease, unspecified; I42.2 Other hypertrophic cardiomyopathy; F15.90 Other stimulant use, unspecified, uncomplicated; I08.1 Rheumatic disorders of both mitral and tricuspid valves; Z88.0 Allergy status to penicillin; Z79.51 Long term (current) use of inhaled steroids; Z79.899 Other long term (current) drug therapy
CPT/HCPCS: 51702; 93005; 96374; 99291